=== PATIENT | female | born 1985 | race Hispanic/Latino ===

== ENCOUNTER 2018-12-19 11:51 | Emergency (ER) | payer OTHER ==
[~2018-12-19] VITALS: Ht 152.4 cm; Wt 92.0 kg
[2018-12-19] MEDS ORDERED: VOLTAREN - GENE75 MG PO (13:13)
[2018-12-19 13:27] VITALS: BP 131/74
== END 2018-12-19 13:36 | disposition home or self-care (01) | DRG 563 ==
LOC: ED 11:51
DX: S43.401A Unspecified sprain of right shoulder joint, initial encounter (principal); W18.39XA Other fall on same level, initial encounter; Y93.89 Activity, other specified; Y92.73 Farm field as the place of occurrence of the external cause; Y99.0 Civilian activity done for income or pay